=== PATIENT | male | born 2000 | race Caucasian/White ===

== ENCOUNTER 2021-02-28 18:19 | Emergency (ER) | payer BC, OTHER ==
[2021-02-28 18:35] VITALS: BP 134/83; PULSE 108; RESP 18; TEMP 98
--- NOTE | 2021-02-28 19:34 | ED ---
General Adult HPI - General Chief complaint: Urogenital Stated complaint: Male Time Seen by Provider: 02/28/21 18:58 Source: patient, RN notes reviewed Mode of arrival: ambulatory Limitations: no limitations - History of Present Illness Initial comments: Patient is a pleasant 21-year-old male presenting to the emergency department with concerns for penile swelling. Onset of symptoms was approximately 30 or 40 hours ago. Discomfort progressed. Patient then has had some bleeding from the distal penis. Since getting a started discomfort has actually improved some. Discomfort was 7/10 however now is 5/10. Patient denies any recent trauma, intercourse or masturbation that could relate to this. Patient states one time previously he did have swelling however not as significant as this and was several years ago. Patient denies any redness. No fevers. - Related Data Home Medications Medication Instructions Recorded Confirmed Ibuprofen [Motrin] 600 mg PO Q6HR PRN 10/24/15 10/24/15 Allergies Allergy/AdvReac Type Severity Reaction Status Date / Time No Known Allergies Allergy Verified 02/28/21 18:34 Review of Systems ROS Statement: Those systems with pertinent positive or pertinent negative responses have been documented in the HPI. ROS Other: All systems not noted in ROS Statement are negative. Constitutional: Denies: fever Eyes: Denies: eye pain ENT: Denies: ear pain Respiratory: Denies: cough Cardiovascular: Denies: chest pain Endocrine: Denies: fatigue Gastrointestinal: Denies: abdominal pain Genitourinary: Reports: as per HPI. Denies: dysuria Musculoskeletal: Denies: back pain Skin: Denies: lesions Neurological: Denies: headache Past Medical History Past Medical History: Asthma Additional Past Medical History / Comment(s): cluster bowel migraines History of Any Multi-Drug Resistant Organisms: None Reported Past Surgical History: No Surgical Hx Reported Past Psychological History: ADD/ADHD Smoking Status: Never smoker Past Alcohol Use History: None Reported Past Drug Use History: None Reported General Exam Limitations: no limitations General appearance: alert, in no apparent distress Head exam: Present: normocephalic Eye exam: Present: normal appearance Respiratory exam: Present: normal lung sounds bilaterally Cardiovascular Exam: Present: regular rate, normal rhythm exam: Present: other (Patient does have moderate swelling of the shaft of the penis, more so on the right side with tenderness. No erythema or discoloration. Distal portion does have a small crack with evidence of recent bleeding.). Absent: testicular tenderness, urethral discharge, scrotal swelling Extremities exam: Present: normal inspection Neurological exam: Present: alert Psychiatric exam: Present: normal affect, normal mood Skin exam: Present: normal color Course Vital Signs 02/28/21 18:31 Temperature 98 F Pulse Rate 108 H Respiratory 18 Rate Blood Pressure 134/83 O2 Sat by Pulse 97 Oximetry - Reevaluation(s) Reevaluation #1: 02/28/21 19:33 Case was discussed with urology, Dr. dalal who requests ultrasound and will follow up with patient in the morning Medical Decision Making - Medical Decision Making Patient reevaluated and updated. - Radiology Data Radiology results: report reviewed (Ultrasound shows edematous penis without evidence of fracture) Disposition Clinical Impression: Edema Disposition: HOME SELF-CARE Condition: Stable Instructions (If sedation given, give patient instructions): Edema (ED) Additional Instructions: Please follow-up in the morning with Dr. dalal. Return for increased pain, swelling, fever or redness, worsening symptoms or other concerns. Is patient prescribed a controlled substance at d/c from ED?: No Referrals: Rogelio Lynn MD [REFERRING] - 1-2 days Marek Spear MD [STAFF PHYSICIAN] - 1-2 days Time of Disposition: 21:17
--- NOTE | 2021-02-28 21:10 | US ---
EXAMINATION TYPE: US groin RT DATE OF EXAM: 02/28/2021 COMPARISON: NONE CLINICAL HISTORY: pain. Pain. Exam is limited, ER pt. *Evaluate penis for fracture per Dr. Santos. Scanned penile shaft. Heterogeneous edematous-appearing tissue seen anteriorly and extending toward t he right. Fracture not definitely seen by ultrasound, although exam is limited. IMPRESSION: Edematous appearing tissues without convincing evidence for penile fracture.
== END 2021-02-28 21:39 | disposition home or self-care (01) ==
LOC: EC 18:19
DX: N48.89 Other specified disorders of penis (principal); J45.909 Unspecified asthma, uncomplicated
CPT/HCPCS: 99283